=== PATIENT | male | born 1955 | race Two or more races ===

== ENCOUNTER 2020-07-18 17:22 | Inpatient (IN) | payer MEDICARE, OTHER ==
[~2020-07-18] VITALS: Ht 170.2 cm; Wt 83.5 kg
[2020-07-18] MEDS ORDERED: ACETAMINOPHEN 325 MG TAB PO ONE ×2 (17:32→17:45)
[2020-07-18] MEDS ORDERED: methylPREDNISolone SOD SUCC 125 MG/2 ML VL IV ONE (17:45)
[2020-07-18] MEDS ORDERED: ASCORBIC ACID 500 MG TAB PO ONE (17:45)
[2020-07-18] MEDS ORDERED: ZINC SULFATE 220mg CAP or TAB PO ONE (17:45)
[2020-07-18] MEDS ORDERED: AZITHROMYCIN 500MG/ 250ML 250 ML IV ONE (17:45)
[2020-07-18 19:33] LABS: Albumin 2.2 g/dL (3.4-5.0); Anion Gap 8 (5-15); Blood Urea Nitrogen 16 mg/dL (7-18); Calcium 8.1 mg/dL (8.5-10.1); Carbon Dioxide 22 mmol/L (21-32); Chloride 104 mmol/L (98-107); Glucose 123 mg/dL (74-106); Potassium 3.3 mmol/L (3.5-5.1); Sodium 134 mmol/L (136-145)
[2020-07-18 19:40] LABS: Alanine Aminotransferase 49 U/L (16-61); Alkaline Phosphatase 53 U/L (45-117); Aspartate Aminotransferase 41 U/L (15-37); BUN/Creatinine Ratio 15.7; Bilirubin, Total 0.8 mg/dL (0.2-1.0); GFR African American 94 mL/min; GFR Non-African American 78 mL/min; Total Protein 6.8 g/dL (6.4-8.2)
[2020-07-18 19:41] LABS: CRP High Sensitivity > 19 mg/dL (< 0.3)
[2020-07-18 19:42] LABS: Basophils # (auto) 0 10 ^3/uL (0-0.2); Basophils % (auto) 0.1 % (0.0-2.0); Eosinophils # (auto) 0 10 ^3/uL (0-0.8); Eosinophils % (auto) 0.1 % (0.0-7.0); Hematocrit 41.8 % (41.0-53.0); Lymphocytes # (auto) 0.9 10 ^3/uL (0.4-5.4); Lymphocytes % (auto) 12.4 % (10.0-50.0); Mean Corpuscular Hgb Conc. 33.6 g/dL (32.0-36.0); Mean Corpuscular Volume 86.5 fL (80.0-100.0); Monocytes # (auto) 0.3 10 ^3/uL (0-1.3); Monocytes % (auto) 3.7 % (0.0-12.0); Neutrophils % (auto) 83.7 % (37.0-80.0); Nucleated Red Blood Cells % 0.1 %; Platelet Count (auto) 221 10^3/uL (140-450); Red Blood Cells 4.83 10^6/uL (4.5-5.90); White Blood Cell 7.2 10^3/uL (4.4-10.8)
[2020-07-19] MEDS ORDERED: ONDANSETRON HCL 4 MG/2 ML VIAL IV PRN (00:30)
[2020-07-19] MEDS ORDERED: NITROGLYCERIN 0.4 MG SL TAB SL PRN (00:30)
[2020-07-19] MEDS ORDERED: POTASSIUM CHL 20 Meq TABLET PO ONE (00:30)
[2020-07-19] MEDS ORDERED: HYDROcodone-ACET 5/325MG TAB PO PRN (00:30)
[2020-07-19] MEDS ORDERED: ACETAMINOPHEN 325 MG TAB PO PRN (00:30)
[2020-07-19] MEDS ORDERED: MORPHINE SULF INJ 2 MG/ML SYRINGE 1ML IV PRN (00:30)
[2020-07-19] MEDS: SODIUM CHLOR 0.9% PF (SALINE LOCK) 10ML VIAL/SYR IV SCH ×3 (06:07→22:00)
[2020-07-19] MEDS: BUDESONIDE (INHALATION) 180 MCG IH IN SCH ×2 (07:45→22:21)
[2020-07-19] MEDS ORDERED: DOXYCYCLINE 100MG/250ML 250 ML IV SCH (10:00)
[2020-07-19] MEDS ORDERED: REMDESIVIR PER PHARMACY 0 ML IV SCH (12:30)
[2020-07-19] MEDS: DexAMETHasone SOD PHOS 10MG/1ML VIAL INJ IV SCH (12:42)
[2020-07-19] MEDS: ASCORBIC ACID 500 MG TAB PO SCH ×2 (12:43→22:32)
[2020-07-19] MEDS: FAMOTIDINE 20 MG TAB PO SCH ×2 (12:43→22:32)
[2020-07-19] MEDS: ZINC SULFATE 220mg CAP or TAB PO SCH (12:43)
[2020-07-19] MEDS: MULTIPLE VITAMIN TAB PO SCH (12:43)
[2020-07-19] MEDS: CHOLECALCIFEROL (VITD3) 2,000 UNIT CAP PO SCH (12:43)
[2020-07-19] MEDS: ENOXAPARIN SOD 40 MG/0.4 ML SYRINGE SC SCH (12:43)
[2020-07-19] MEDS ORDERED: REMDESIVIR 200 MG in NS 210ml LOADING DOSE ADULT IV ONE (15:00)
[2020-07-19] MEDS: cefTRIAXone 1GM/50ML D5W 50 ML IV SCH (15:59)
[2020-07-19 21:10] VITALS: BP 130/84
[2020-07-19 21:53] VITALS: BP 130/84
[2020-07-19] MEDS: ALBUTEROL SULF HFA 90MCG INH 200DOSE IN PRN (22:21)
[2020-07-19] MEDS ORDERED: BENA20TA14 PO (23:46)
[2020-07-20 05:00] VITALS: BP 126/81
[2020-07-20] MEDS: SODIUM CHLOR 0.9% PF (SALINE LOCK) 10ML VIAL/SYR IV SCH ×3 (05:48→21:33)
[2020-07-20 09:00] VITALS: BP_SYST 123; BP_SYST 71; BP_DIAS 71
[2020-07-20] MEDS: cefTRIAXone 1GM/50ML D5W 50 ML IV SCH (09:00)
[2020-07-20] MEDS: DexAMETHasone SOD PHOS 10MG/1ML VIAL INJ IV SCH (10:00)
[2020-07-20] MEDS: MULTIPLE VITAMIN TAB PO SCH (10:00)
[2020-07-20] MEDS: FAMOTIDINE 20 MG TAB PO SCH ×2 (10:00→21:33)
[2020-07-20] MEDS: CHOLECALCIFEROL (VITD3) 2,000 UNIT CAP PO SCH (10:00)
[2020-07-20] MEDS: ZINC SULFATE 220mg CAP or TAB PO SCH (10:00)
[2020-07-20] MEDS: ENOXAPARIN SOD 40 MG/0.4 ML SYRINGE SC SCH (10:00)
[2020-07-20] MEDS: BUDESONIDE (INHALATION) 180 MCG IH IN SCH ×2 (10:00→19:29)
[2020-07-20] MEDS: ASCORBIC ACID 500 MG TAB PO SCH ×2 (10:00→21:33)
[2020-07-20 10:20] LABS: Basophils # (auto) 0 10 ^3/uL (0-0.2); Basophils % (auto) 0.1 % (0.0-2.0); Eosinophils # (auto) 0 10 ^3/uL (0-0.8); Hematocrit 45.8 % (41.0-53.0); Hemoglobin 15.4 g/dL (13.5-17.5); Lymphocytes # (auto) 0.9 10 ^3/uL (0.4-5.4); Lymphocytes % (auto) 8.5 % (10.0-50.0); Mean Corpuscular Hemoglobin 29.3 pg (28.0-32.0); Mean Corpuscular Hgb Conc. 33.5 g/dL (32.0-36.0); Mean Corpuscular Volume 87.3 fL (80.0-100.0); Monocytes # (auto) 0.5 10 ^3/uL (0-1.3); Monocytes % (auto) 4.4 % (0.0-12.0); Neutrophils # (auto) 9.4 10 ^3/uL (1.6-8.6); Nucleated Red Blood Cells % 0.1 %; Platelet Count (auto) 427 10^3/uL (140-450); Red Blood Cells 5.25 10^6/uL (4.5-5.90); Red Cell Distribution Width 13.9 % (11.8-14.3); White Blood Cell 10.8 10^3/uL (4.4-10.8)
[2020-07-20 10:31] LABS: Potassium 3.5 mmol/L (3.5-5.1)
[2020-07-20 10:45] LABS: Albumin 2.2 g/dL (3.4-5.0); BUN/Creatinine Ratio 29.8; Bilirubin, Total 0.6 mg/dL (0.2-1.0); Calcium 9.3 mg/dL (8.5-10.1); Total Protein 7.6 g/dL (6.4-8.2)
[2020-07-20 13:00] VITALS: BP 135/89
[2020-07-20] MEDS: ALBUTEROL SULF HFA 90MCG INH 200DOSE IN PRN ×2 (15:14→19:29)
[2020-07-20 17:00] VITALS: BP 139/91
[2020-07-20] MEDS: REMDESIVIR 100 MG in SODIUM CHL 0.9% 250 ML IV SCH (19:11)
[2020-07-20 22:00] VITALS: BP 131/85
[2020-07-21] MEDS: guaiFENesin-CODEINE Liq 5 ML UD PO PRN (02:04)
[2020-07-21] MEDS: SODIUM CHLOR 0.9% PF (SALINE LOCK) 10ML VIAL/SYR IV SCH ×3 (06:00→22:00)
[2020-07-21] MEDS: ALBUTEROL SULF HFA 90MCG INH 200DOSE IN PRN ×2 (06:23→20:52)
[2020-07-21] MEDS: BUDESONIDE (INHALATION) 180 MCG IH IN SCH ×2 (06:23→20:52)
[2020-07-21 06:46] LABS: Potassium 4.5 mmol/L (3.5-5.1)
[2020-07-21 06:55] VITALS: BP 123/80
[2020-07-21 06:59] LABS: Albumin 2.1 g/dL (3.4-5.0); BUN/Creatinine Ratio 32.3; Bilirubin, Total 0.6 mg/dL (0.2-1.0); Calcium 8.8 mg/dL (8.5-10.1); Total Protein 6.8 g/dL (6.4-8.2)
[2020-07-21 08:00] VITALS: BP 135/98
[2020-07-21] MEDS: DexAMETHasone SOD PHOS 10MG/1ML VIAL INJ IV SCH (10:43)
[2020-07-21] MEDS: ENOXAPARIN SOD 40 MG/0.4 ML SYRINGE SC SCH ×2 (10:44→21:29)
[2020-07-21] MEDS: ASCORBIC ACID 500 MG TAB PO SCH ×2 (10:44→21:29)
[2020-07-21] MEDS: MULTIPLE VITAMIN TAB PO SCH (10:45)
[2020-07-21] MEDS: FAMOTIDINE 20 MG TAB PO SCH ×2 (10:45→21:29)
[2020-07-21] MEDS: CHOLECALCIFEROL (VITD3) 2,000 UNIT CAP PO SCH (10:45)
[2020-07-21] MEDS: ZINC SULFATE 220mg CAP or TAB PO SCH (10:46)
[2020-07-21 12:00] VITALS: BP 130/79
[2020-07-21 17:00] VITALS: BP 131/80
[2020-07-21] MEDS: REMDESIVIR 100 MG in SODIUM CHL 0.9% 250 ML IV SCH (17:19)
[2020-07-21 22:00] VITALS: BP 126/74
[2020-07-22] VITALS (7 sets, daily range): BP systolic 121–141; BP diastolic 73–98
[2020-07-22] MEDS: guaiFENesin-CODEINE Liq 5 ML UD PO PRN (05:01)
[2020-07-22] MEDS: SODIUM CHLOR 0.9% PF (SALINE LOCK) 10ML VIAL/SYR IV SCH ×3 (05:42→21:02)
[2020-07-22] MEDS: Ensure Enlive Strawberry 8oz Bottle PO SCH ×3 (08:00→17:43)
[2020-07-22] MEDS: MULTIPLE VITAMIN TAB PO SCH (09:32)
[2020-07-22] MEDS: ASCORBIC ACID 500 MG TAB PO SCH ×2 (09:32→21:02)
[2020-07-22] MEDS: DexAMETHasone SOD PHOS 10MG/1ML VIAL INJ IV SCH (09:33)
[2020-07-22] MEDS: ENOXAPARIN SOD 40 MG/0.4 ML SYRINGE SC SCH ×2 (09:33→10:30)
[2020-07-22] MEDS: CHOLECALCIFEROL (VITD3) 2,000 UNIT CAP PO SCH (09:34)
[2020-07-22] MEDS: FAMOTIDINE 20 MG TAB PO SCH ×2 (09:34→21:01)
[2020-07-22] MEDS: ZINC SULFATE 220mg CAP or TAB PO SCH (09:34)
[2020-07-22] MEDS: BUDESONIDE (INHALATION) 180 MCG IH IN SCH (10:00)
[2020-07-22 10:23] LABS: Basophils # (auto) 0 10 ^3/uL (0-0.2); Basophils % (auto) 0.1 % (0.0-2.0); Eosinophils # (auto) 0.1 10 ^3/uL (0-0.8); Eosinophils % (auto) 1.1 % (0.0-7.0); Hemoglobin 15.4 g/dL (13.5-17.5); Lymphocytes # (auto) 1.4 10 ^3/uL (0.4-5.4); Lymphocytes % (auto) 13.1 % (10.0-50.0); Mean Corpuscular Hemoglobin 29.4 pg (28.0-32.0); Mean Corpuscular Hgb Conc. 33.5 g/dL (32.0-36.0); Mean Corpuscular Volume 87.7 fL (80.0-100.0); Monocytes # (auto) 0.5 10 ^3/uL (0-1.3); Monocytes % (auto) 4.8 % (0.0-12.0); Neutrophils # (auto) 8.8 10 ^3/uL (1.6-8.6); Neutrophils % (auto) 80.9 % (37.0-80.0); Platelet Count (auto) 429 10^3/uL (140-450); Red Blood Cells 5.24 10^6/uL (4.5-5.90); Red Cell Distribution Width 14.3 % (11.8-14.3); White Blood Cell 10.9 10^3/uL (4.4-10.8)
[2020-07-22 10:29] LABS: Albumin 2.2 g/dL (3.4-5.0); BUN/Creatinine Ratio 25.8; Calcium 8.7 mg/dL (8.5-10.1); Potassium 3.7 mmol/L (3.5-5.1)
[2020-07-22 10:38] LABS: Bilirubin, Total 0.9 mg/dL (0.2-1.0); CRP High Sensitivity 14.1 mg/dL (< 0.3); Total Protein 7.4 g/dL (6.4-8.2)
[2020-07-22] MEDS: ALBUTEROL SULF HFA 90MCG INH 200DOSE IN PRN (11:39)
[2020-07-22] MEDS: REMDESIVIR 100 MG in SODIUM CHL 0.9% 250 ML IV SCH (15:21)
[2020-07-23] VITALS (7 sets, daily range): BP systolic 117–138; BP diastolic 79–85
[2020-07-23] MEDS: SODIUM CHLOR 0.9% PF (SALINE LOCK) 10ML VIAL/SYR IV SCH ×3 (05:24→21:41)
[2020-07-23 05:55] LABS: Hematocrit 43.9 % (41.0-53.0); Hemoglobin 14.7 g/dL (13.5-17.5); Mean Corpuscular Hemoglobin 29.5 pg (28.0-32.0); Mean Corpuscular Hgb Conc. 33.5 g/dL (32.0-36.0); Platelet Count (auto) 348 10^3/uL (140-450); Red Blood Cells 4.98 10^6/uL (4.5-5.90); White Blood Cell 8.7 10^3/uL (4.4-10.8)
[2020-07-23 06:09] LABS: Calcium 8.6 mg/dL (8.5-10.1); Potassium 4.4 mmol/L (3.5-5.1)
[2020-07-23 06:23] LABS: BUN/Creatinine Ratio 35.8; Bilirubin, Total 0.6 mg/dL (0.2-1.0); CRP High Sensitivity 14.7 mg/dL (< 0.3); Total Protein 6.7 g/dL (6.4-8.2)
[2020-07-23 06:29] LABS: Basophils % (manual) 0 (0.0-2.0); Blast Cells 0; Eosinophils % (manual) 0 (0-7); Promyelocytes % 0; Reactive Lymphocytes 0
[2020-07-23] MEDS: guaiFENesin-CODEINE Liq 5 ML UD PO PRN (06:59)
[2020-07-23 08:08] LABS: Band Neutrophils % (manual) 2; Lymphocytes % (manual) 17 (10.0-50.0); Metamyelocytes % 2; Monocytes % (manual) 2 (0-12); Myelocytes % 1
[2020-07-23] MEDS: ASCORBIC ACID 500 MG TAB PO SCH ×2 (09:12→21:41)
[2020-07-23] MEDS: DexAMETHasone SOD PHOS 10MG/1ML VIAL INJ IV SCH (09:12)
[2020-07-23] MEDS: Ensure Enlive Strawberry 8oz Bottle PO SCH ×3 (09:12→18:15)
[2020-07-23] MEDS: MULTIPLE VITAMIN TAB PO SCH (09:12)
[2020-07-23] MEDS: FAMOTIDINE 20 MG TAB PO SCH ×2 (09:13→21:41)
[2020-07-23] MEDS: ENOXAPARIN SOD 40 MG/0.4 ML SYRINGE SC SCH (09:13)
[2020-07-23] MEDS: ZINC SULFATE 220mg CAP or TAB PO SCH (09:13)
[2020-07-23] MEDS: CHOLECALCIFEROL (VITD3) 2,000 UNIT CAP PO SCH (09:13)
[2020-07-23] MEDS: REMDESIVIR 100 MG in SODIUM CHL 0.9% 250 ML IV SCH (15:35)
[2020-07-23] MEDS: BUDESONIDE (INHALATION) 180 MCG IH IN SCH (21:41)
[2020-07-24] VITALS: BP 126/77
[2020-07-24] MEDS: SODIUM CHLOR 0.9% PF (SALINE LOCK) 10ML VIAL/SYR IV SCH ×3 (05:15→21:04)
[2020-07-24 07:01] LABS: Basophils # (auto) 0 10 ^3/uL (0-0.2); Basophils % (auto) 0.1 % (0.0-2.0); Eosinophils # (auto) 0.1 10 ^3/uL (0-0.8); Eosinophils % (auto) 0.9 % (0.0-7.0); Hematocrit 42.9 % (41.0-53.0); Hemoglobin 14.3 g/dL (13.5-17.5); Lymphocytes # (auto) 1.1 10 ^3/uL (0.4-5.4); Lymphocytes % (auto) 11.2 % (10.0-50.0); Mean Corpuscular Hemoglobin 29.2 pg (28.0-32.0); Mean Corpuscular Hgb Conc. 33.3 g/dL (32.0-36.0); Mean Corpuscular Volume 87.5 fL (80.0-100.0); Monocytes # (auto) 0.8 10 ^3/uL (0-1.3); Neutrophils % (auto) 79.8 % (37.0-80.0); Platelet Count (auto) 310 10^3/uL (140-450); Red Cell Distribution Width 14.4 % (11.8-14.3)
[2020-07-24 07:42] LABS: Potassium 4.1 mmol/L (3.5-5.1)
[2020-07-24 08:05] LABS: Bilirubin, Total 0.7 mg/dL (0.2-1.0); CRP High Sensitivity 11.6 mg/dL (< 0.3); Calcium 8.7 mg/dL (8.5-10.1); Total Protein 6.5 g/dL (6.4-8.2)
[2020-07-24 09:00] VITALS: BP 131/87
[2020-07-24] MEDS: ZINC SULFATE 220mg CAP or TAB PO SCH (09:53)
[2020-07-24] MEDS: DexAMETHasone SOD PHOS 10MG/1ML VIAL INJ IV SCH (09:53)
[2020-07-24] MEDS: MULTIPLE VITAMIN TAB PO SCH (09:54)
[2020-07-24] MEDS: ASCORBIC ACID 500 MG TAB PO SCH ×2 (09:55→21:04)
[2020-07-24] MEDS: CHOLECALCIFEROL (VITD3) 2,000 UNIT CAP PO SCH (09:55)
[2020-07-24] MEDS: FAMOTIDINE 20 MG TAB PO SCH ×2 (09:55→21:04)
[2020-07-24] MEDS: ENOXAPARIN SOD 40 MG/0.4 ML SYRINGE SC SCH (09:56)
[2020-07-24] MEDS: Ensure Enlive Strawberry 8oz Bottle PO SCH ×3 (10:02→19:00)
[2020-07-24] MEDS: BUDESONIDE (INHALATION) 180 MCG IH IN SCH ×2 (10:03→21:04)
[2020-07-24 13:00] VITALS: BP 129/79
[2020-07-24 16:00] VITALS: BP 145/74
[2020-07-24] MEDS ORDERED: ALPRAZolam 0.25 MG TAB PO PRN (22:45)
[2020-07-25] VITALS: BP 130/83
[2020-07-25] MEDS: SODIUM CHLOR 0.9% PF (SALINE LOCK) 10ML VIAL/SYR IV SCH ×3 (05:11→21:22)
[2020-07-25] MEDS: guaiFENesin-CODEINE Liq 5 ML UD PO PRN ×2 (06:56→22:07)
[2020-07-25 06:57] LABS: Basophils # (auto) 0 10 ^3/uL (0-0.2); Basophils % (auto) 0.1 % (0.0-2.0); Eosinophils # (auto) 0 10 ^3/uL (0-0.8); Eosinophils % (auto) 0.4 % (0.0-7.0); Hematocrit 44.3 % (41.0-53.0); Hemoglobin 14.6 g/dL (13.5-17.5); Lymphocytes % (auto) 9.5 % (10.0-50.0); Mean Corpuscular Hemoglobin 29.2 pg (28.0-32.0); Mean Corpuscular Volume 88.5 fL (80.0-100.0); Monocytes # (auto) 0.9 10 ^3/uL (0-1.3); Monocytes % (auto) 8.9 % (0.0-12.0); Neutrophils # (auto) 8.4 10 ^3/uL (1.6-8.6); Neutrophils % (auto) 81.1 % (37.0-80.0); Nucleated Red Blood Cells % 0.2 %; Platelet Count (auto) 261 10^3/uL (140-450); Red Cell Distribution Width 13.8 % (11.8-14.3); White Blood Cell 10.3 10^3/uL (4.4-10.8)
[2020-07-25 07:08] LABS: Potassium 4.7 mmol/L (3.5-5.1)
[2020-07-25 07:42] LABS: BUN/Creatinine Ratio 30.4; Bilirubin, Total 0.7 mg/dL (0.2-1.0); CRP High Sensitivity 13.4 mg/dL (< 0.3); Calcium 8.9 mg/dL (8.5-10.1); Total Protein 6.8 g/dL (6.4-8.2)
[2020-07-25 08:00] VITALS: BP 137/69
[2020-07-25] MEDS: Ensure Enlive Strawberry 8oz Bottle PO SCH ×3 (08:55→18:16)
[2020-07-25] MEDS: ENOXAPARIN SOD 40 MG/0.4 ML SYRINGE SC SCH (09:06)
[2020-07-25] MEDS: CHOLECALCIFEROL (VITD3) 2,000 UNIT CAP PO SCH (09:06)
[2020-07-25] MEDS: FAMOTIDINE 20 MG TAB PO SCH ×2 (09:07→21:22)
[2020-07-25] MEDS: DexAMETHasone SOD PHOS 10MG/1ML VIAL INJ IV SCH (09:07)
[2020-07-25] MEDS: MULTIPLE VITAMIN TAB PO SCH (09:07)
[2020-07-25] MEDS: ZINC SULFATE 220mg CAP or TAB PO SCH (09:07)
[2020-07-25] MEDS: BUDESONIDE (INHALATION) 180 MCG IH IN SCH ×2 (09:07→22:22)
[2020-07-25] MEDS: ASCORBIC ACID 500 MG TAB PO SCH ×2 (09:07→21:22)
[2020-07-25 16:00] VITALS: BP 130/89
[2020-07-26] VITALS: BP 142/90
[2020-07-26] MEDS: SODIUM CHLOR 0.9% PF (SALINE LOCK) 10ML VIAL/SYR IV SCH ×3 (05:35→22:15)
[2020-07-26 06:34] LABS: Potassium 4.2 mmol/L (3.5-5.1)
[2020-07-26 06:54] LABS: Basophils # (auto) 0 10 ^3/uL (0-0.2); Basophils % (auto) 0.1 % (0.0-2.0); Eosinophils # (auto) 0 10 ^3/uL (0-0.8); Eosinophils % (auto) 0.5 % (0.0-7.0); Hematocrit 40.8 % (41.0-53.0); Hemoglobin 13.8 g/dL (13.5-17.5); Lymphocytes # (auto) 1.1 10 ^3/uL (0.4-5.4); Lymphocytes % (auto) 11.1 % (10.0-50.0); Mean Corpuscular Hemoglobin 29.6 pg (28.0-32.0); Mean Corpuscular Hgb Conc. 33.7 g/dL (32.0-36.0); Mean Corpuscular Volume 87.8 fL (80.0-100.0); Monocytes # (auto) 1.1 10 ^3/uL (0-1.3); Monocytes % (auto) 10.5 % (0.0-12.0); Neutrophils # (auto) 7.8 10 ^3/uL (1.6-8.6); Neutrophils % (auto) 77.8 % (37.0-80.0); Nucleated Red Blood Cells % 0.1 %; Platelet Count (auto) 241 10^3/uL (140-450); Red Blood Cells 4.65 10^6/uL (4.5-5.90); Red Cell Distribution Width 13.7 % (11.8-14.3); White Blood Cell 10.1 10^3/uL (4.4-10.8)
[2020-07-26 07:27] LABS: Albumin 1.9 g/dL (3.4-5.0); BUN/Creatinine Ratio 31.6; Bilirubin, Total 0.5 mg/dL (0.2-1.0); Calcium 8.3 mg/dL (8.5-10.1); Total Protein 6.6 g/dL (6.4-8.2)
[2020-07-26] MEDS: BUDESONIDE (INHALATION) 180 MCG IH IN SCH ×2 (07:55→23:29)
[2020-07-26 08:00] VITALS: BP 132/85
[2020-07-26] MEDS: DexAMETHasone SOD PHOS 10MG/1ML VIAL INJ IV SCH (12:10)
[2020-07-26] MEDS: ZINC SULFATE 220mg CAP or TAB PO SCH (12:10)
[2020-07-26] MEDS: Ensure Enlive Strawberry 8oz Bottle PO SCH ×3 (12:10→19:20)
[2020-07-26] MEDS: MULTIPLE VITAMIN TAB PO SCH (12:11)
[2020-07-26] MEDS: ASCORBIC ACID 500 MG TAB PO SCH ×2 (12:11→22:15)
[2020-07-26] MEDS: FAMOTIDINE 20 MG TAB PO SCH ×2 (12:11→22:15)
[2020-07-26] MEDS: ENOXAPARIN SOD 40 MG/0.4 ML SYRINGE SC SCH (12:11)
[2020-07-26] MEDS: CHOLECALCIFEROL (VITD3) 2,000 UNIT CAP PO SCH (12:11)
[2020-07-26] MEDS: guaiFENesin-CODEINE Liq 5 ML UD PO PRN (12:21)
[2020-07-26 21:41] VITALS: BP 133/94
[2020-07-27] MEDS: SODIUM CHLOR 0.9% PF (SALINE LOCK) 10ML VIAL/SYR IV SCH ×3 (06:11→23:02)
[2020-07-27 07:28] LABS: Basophils # (auto) 0 10 ^3/uL (0-0.2); Basophils % (auto) 0.3 % (0.0-2.0); Eosinophils # (auto) 0 10 ^3/uL (0-0.8); Eosinophils % (auto) 0.3 % (0.0-7.0); Hematocrit 40.9 % (41.0-53.0); Hemoglobin 14.2 g/dL (13.5-17.5); Lymphocytes # (auto) 1.2 10 ^3/uL (0.4-5.4); Lymphocytes % (auto) 12.8 % (10.0-50.0); Mean Corpuscular Hemoglobin 30.3 pg (28.0-32.0); Mean Corpuscular Hgb Conc. 34.7 g/dL (32.0-36.0); Mean Corpuscular Volume 87.4 fL (80.0-100.0); Monocytes # (auto) 0.9 10 ^3/uL (0-1.3); Monocytes % (auto) 9.4 % (0.0-12.0); Neutrophils # (auto) 7.5 10 ^3/uL (1.6-8.6); Neutrophils % (auto) 77.2 % (37.0-80.0); Nucleated Red Blood Cells % 0.1 %; Platelet Count (auto) 222 10^3/uL (140-450); Red Blood Cells 4.68 10^6/uL (4.5-5.90); Red Cell Distribution Width 13.5 % (11.8-14.3); White Blood Cell 9.7 10^3/uL (4.4-10.8)
[2020-07-27 07:46] LABS: Potassium 4.4 mmol/L (3.5-5.1)
[2020-07-27 07:57] LABS: Albumin 2.1 g/dL (3.4-5.0); BUN/Creatinine Ratio 32.5; Bilirubin, Total 0.6 mg/dL (0.2-1.0); Total Protein 6.9 g/dL (6.4-8.2)
[2020-07-27 08:00] VITALS: BP 122/93
[2020-07-27] MEDS: Ensure Enlive Strawberry 8oz Bottle PO SCH ×3 (08:00→18:00)
[2020-07-27 08:08] LABS: Calcium 8.6 mg/dL (8.5-10.1)
[2020-07-27] MEDS: ZINC SULFATE 220mg CAP or TAB PO SCH (10:04)
[2020-07-27] MEDS: DexAMETHasone SOD PHOS 10MG/1ML VIAL INJ IV SCH (10:04)
[2020-07-27] MEDS: ASCORBIC ACID 500 MG TAB PO SCH ×2 (10:04→21:33)
[2020-07-27] MEDS: FAMOTIDINE 20 MG TAB PO SCH ×2 (10:04→21:34)
[2020-07-27] MEDS: MULTIPLE VITAMIN TAB PO SCH (10:04)
[2020-07-27] MEDS: ENOXAPARIN SOD 40 MG/0.4 ML SYRINGE SC SCH (10:05)
[2020-07-27] MEDS: CHOLECALCIFEROL (VITD3) 2,000 UNIT CAP PO SCH (10:05)
[2020-07-27] MEDS ORDERED: ZOLPIDEM TARTRATE 5 MG TAB PO PRN (10:15)
[2020-07-27 16:00] VITALS: BP 126/91
[2020-07-27] MEDS: BUDESONIDE (INHALATION) 180 MCG IH IN SCH (20:10)
[2020-07-28] VITALS: BP 129/88
[2020-07-28] MEDS: guaiFENesin-CODEINE Liq 5 ML UD PO PRN ×2 (05:37→16:38)
[2020-07-28] MEDS: SODIUM CHLOR 0.9% PF (SALINE LOCK) 10ML VIAL/SYR IV SCH ×3 (05:38→22:25)
[2020-07-28 06:21] LABS: Basophils # (auto) 0 10 ^3/uL (0-0.2); Basophils % (auto) 0.1 % (0.0-2.0); Eosinophils # (auto) 0 10 ^3/uL (0-0.8); Eosinophils % (auto) 0.3 % (0.0-7.0); Hematocrit 44.1 % (41.0-53.0); Hemoglobin 15.1 g/dL (13.5-17.5); Lymphocytes # (auto) 1.5 10 ^3/uL (0.4-5.4); Lymphocytes % (auto) 13.8 % (10.0-50.0); Mean Corpuscular Hgb Conc. 34.3 g/dL (32.0-36.0); Mean Corpuscular Volume 87.4 fL (80.0-100.0); Monocytes # (auto) 1.1 10 ^3/uL (0-1.3); Monocytes % (auto) 9.6 % (0.0-12.0); Neutrophils # (auto) 8.4 10 ^3/uL (1.6-8.6); Neutrophils % (auto) 76.2 % (37.0-80.0); Nucleated Red Blood Cells % 0.1 %; Platelet Count (auto) 263 10^3/uL (140-450); Red Blood Cells 5.04 10^6/uL (4.5-5.90); Red Cell Distribution Width 13.7 % (11.8-14.3)
[2020-07-28 06:43] LABS: Potassium 4.3 mmol/L (3.5-5.1)
[2020-07-28 06:52] LABS: Albumin 2.2 g/dL (3.4-5.0); BUN/Creatinine Ratio 41.2; Bilirubin, Total 0.6 mg/dL (0.2-1.0); Calcium 8.8 mg/dL (8.5-10.1)
[2020-07-28] MEDS: ALBUTEROL SULF HFA 90MCG INH 200DOSE IN PRN ×2 (07:29→19:19)
[2020-07-28] MEDS: BUDESONIDE (INHALATION) 180 MCG IH IN SCH ×2 (07:29→19:19)
[2020-07-28 08:00] VITALS: BP 126/76
[2020-07-28] MEDS: Ensure Enlive Strawberry 8oz Bottle PO SCH ×3 (09:50→18:06)
[2020-07-28] MEDS: FAMOTIDINE 20 MG TAB PO SCH ×2 (10:04→22:26)
[2020-07-28] MEDS: DexAMETHasone SOD PHOS 10MG/1ML VIAL INJ IV SCH (10:04)
[2020-07-28] MEDS: ZINC SULFATE 220mg CAP or TAB PO SCH (10:04)
[2020-07-28] MEDS: MULTIPLE VITAMIN TAB PO SCH (10:04)
[2020-07-28] MEDS: ASCORBIC ACID 500 MG TAB PO SCH ×2 (10:04→22:26)
[2020-07-28] MEDS: ENOXAPARIN SOD 40 MG/0.4 ML SYRINGE SC SCH (10:05)
[2020-07-28] MEDS: CHOLECALCIFEROL (VITD3) 2,000 UNIT CAP PO SCH (10:05)
[2020-07-28 16:00] VITALS: BP 131/89
[2020-07-29] VITALS: BP 129/89
[2020-07-29] MEDS: SODIUM CHLOR 0.9% PF (SALINE LOCK) 10ML VIAL/SYR IV SCH ×3 (06:00→21:38)
[2020-07-29 06:27] LABS: Hematocrit 43.1 % (41.0-53.0); Hemoglobin 14.4 g/dL (13.5-17.5); Mean Corpuscular Hemoglobin 29.3 pg (28.0-32.0); Mean Corpuscular Hgb Conc. 33.4 g/dL (32.0-36.0); Mean Corpuscular Volume 87.7 fL (80.0-100.0); Platelet Count (auto) 248 10^3/uL (140-450); Red Blood Cells 4.91 10^6/uL (4.5-5.90); Red Cell Distribution Width 13.7 % (11.8-14.3); White Blood Cell 9.4 10^3/uL (4.4-10.8)
[2020-07-29 06:50] LABS: Band Neutrophils % (manual) 0; Basophils % (manual) 0 (0.0-2.0); Blast Cells 0; Eosinophils % (manual) 0 (0-7); Myelocytes % 0; Promyelocytes % 0; Reactive Lymphocytes 0
[2020-07-29 06:52] LABS: Albumin 2.1 g/dL (3.4-5.0); Calcium 8.6 mg/dL (8.5-10.1); Potassium 4.2 mmol/L (3.5-5.1)
[2020-07-29 06:57] LABS: BUN/Creatinine Ratio 39.5; Bilirubin, Total 0.6 mg/dL (0.2-1.0)
[2020-07-29 07:48] LABS: Lymphocytes % (manual) 10 (10.0-50.0); Metamyelocytes % 2; Monocytes % (manual) 3 (0-12)
[2020-07-29 09:00] VITALS: BP 144/82
[2020-07-29] MEDS: ALBUTEROL SULF HFA 90MCG INH 200DOSE IN PRN ×2 (09:27→20:18)
[2020-07-29] MEDS: BUDESONIDE (INHALATION) 180 MCG IH IN SCH ×2 (09:27→18:22)
[2020-07-29] MEDS: Ensure Enlive Strawberry 8oz Bottle PO SCH ×3 (10:08→18:00)
[2020-07-29] MEDS: DexAMETHasone SOD PHOS 10MG/1ML VIAL INJ IV SCH (10:09)
[2020-07-29] MEDS: ZINC SULFATE 220mg CAP or TAB PO SCH (10:09)
[2020-07-29] MEDS: FAMOTIDINE 20 MG TAB PO SCH ×2 (10:09→21:38)
[2020-07-29] MEDS: MULTIPLE VITAMIN TAB PO SCH (10:09)
[2020-07-29] MEDS: CHOLECALCIFEROL (VITD3) 2,000 UNIT CAP PO SCH (10:10)
[2020-07-29] MEDS: ASCORBIC ACID 500 MG TAB PO SCH ×2 (10:10→21:38)
[2020-07-29] MEDS: ENOXAPARIN SOD 40 MG/0.4 ML SYRINGE SC SCH (10:10)
[2020-07-29] MEDS: guaiFENesin-CODEINE Liq 5 ML UD PO PRN (11:35)
[2020-07-29 17:00] VITALS: BP 124/83
[2020-07-29 22:00] VITALS: BP 134/88
[2020-07-30] MEDS: SODIUM CHLOR 0.9% PF (SALINE LOCK) 10ML VIAL/SYR IV SCH ×3 (06:00→21:37)
[2020-07-30] MEDS: BUDESONIDE (INHALATION) 180 MCG IH IN SCH ×2 (06:27→22:11)
[2020-07-30 06:42] LABS: Hematocrit 43.4 % (41.0-53.0); Hemoglobin 14.5 g/dL (13.5-17.5); Mean Corpuscular Hemoglobin 29.4 pg (28.0-32.0); Mean Corpuscular Hgb Conc. 33.5 g/dL (32.0-36.0); Mean Corpuscular Volume 87.8 fL (80.0-100.0); Platelet Count (auto) 269 10^3/uL (140-450); Red Blood Cells 4.95 10^6/uL (4.5-5.90); Red Cell Distribution Width 13.7 % (11.8-14.3)
[2020-07-30 06:52] LABS: Band Neutrophils % (manual) 0; Basophils % (manual) 0 (0.0-2.0); Blast Cells 0; Myelocytes % 0; Promyelocytes % 0; Reactive Lymphocytes 0
[2020-07-30] MEDS: ALBUTEROL SULF HFA 90MCG INH 200DOSE IN PRN (07:35)
[2020-07-30 07:59] LABS: Eosinophils % (manual) 3 (0-7); Lymphocytes % (manual) 23 (10.0-50.0); Metamyelocytes % 1; Monocytes % (manual) 5 (0-12)
[2020-07-30 08:00] VITALS: BP 121/77
[2020-07-30 08:47] LABS: Potassium 4.2 mmol/L (3.5-5.1)
[2020-07-30 09:00] LABS: Albumin 2.2 g/dL (3.4-5.0); BUN/Creatinine Ratio 40.8; Bilirubin, Total 0.6 mg/dL (0.2-1.0); Calcium 8.7 mg/dL (8.5-10.1); Total Protein 7.1 g/dL (6.4-8.2)
[2020-07-30] MEDS: MULTIPLE VITAMIN TAB PO SCH (10:00)
[2020-07-30] MEDS: ZINC SULFATE 220mg CAP or TAB PO SCH (10:19)
[2020-07-30] MEDS: DexAMETHasone SOD PHOS 10MG/1ML VIAL INJ IV SCH (10:19)
[2020-07-30] MEDS: ENOXAPARIN SOD 40 MG/0.4 ML SYRINGE SC SCH (10:20)
[2020-07-30] MEDS: FAMOTIDINE 20 MG TAB PO SCH ×2 (10:20→21:37)
[2020-07-30] MEDS: CHOLECALCIFEROL (VITD3) 2,000 UNIT CAP PO SCH (10:20)
[2020-07-30] MEDS: ASCORBIC ACID 500 MG TAB PO SCH ×2 (10:20→21:37)
[2020-07-30] MEDS: Ensure Enlive Strawberry 8oz Bottle PO SCH ×3 (10:21→19:16)
[2020-07-30] MEDS: DOCUSATE SOD 100 MG CAP PO PRN (10:47)
[2020-07-30] MEDS: guaiFENesin-CODEINE Liq 5 ML UD PO PRN ×2 (10:48→21:37)
[2020-07-30 16:00] VITALS: BP 121/78
[2020-07-31] VITALS: BP 132/92
[2020-07-31] MEDS: BUDESONIDE (INHALATION) 180 MCG IH IN SCH ×2 (06:00→21:00)
[2020-07-31 06:18] LABS: Hematocrit 42.3 % (41.0-53.0); Hemoglobin 14.3 g/dL (13.5-17.5); Mean Corpuscular Hemoglobin 29.4 pg (28.0-32.0); Mean Corpuscular Hgb Conc. 33.7 g/dL (32.0-36.0); Mean Corpuscular Volume 87.2 fL (80.0-100.0); Platelet Count (auto) 255 10^3/uL (140-450); Red Blood Cells 4.85 10^6/uL (4.5-5.90); Red Cell Distribution Width 13.6 % (11.8-14.3); White Blood Cell 9.6 10^3/uL (4.4-10.8)
[2020-07-31] MEDS: ALBUTEROL SULF HFA 90MCG INH 200DOSE IN PRN ×2 (07:01→21:00)
[2020-07-31] MEDS: SODIUM CHLOR 0.9% PF (SALINE LOCK) 10ML VIAL/SYR IV SCH ×3 (07:03→21:54)
[2020-07-31 07:12] LABS: Basophils % (manual) 0 (0.0-2.0); Blast Cells 0; Eosinophils % (manual) 0 (0-7); Metamyelocytes % 0; Myelocytes % 0; Promyelocytes % 0; Reactive Lymphocytes 0
[2020-07-31 08:00] VITALS: BP 141/90
[2020-07-31 08:29] LABS: Albumin 2.2 g/dL (3.4-5.0); BUN/Creatinine Ratio 39.7; Bilirubin, Total 0.6 mg/dL (0.2-1.0); Calcium 8.6 mg/dL (8.5-10.1); Potassium 4.2 mmol/L (3.5-5.1); Total Protein 6.8 g/dL (6.4-8.2)
[2020-07-31] MEDS: DexAMETHasone SOD PHOS 10MG/1ML VIAL INJ IV SCH (09:38)
[2020-07-31] MEDS: ENOXAPARIN SOD 40 MG/0.4 ML SYRINGE SC SCH (09:38)
[2020-07-31] MEDS: ASCORBIC ACID 500 MG TAB PO SCH ×2 (09:38→21:54)
[2020-07-31] MEDS: FAMOTIDINE 20 MG TAB PO SCH ×2 (09:38→21:53)
[2020-07-31] MEDS: CHOLECALCIFEROL (VITD3) 2,000 UNIT CAP PO SCH (09:38)
[2020-07-31] MEDS: Ensure Enlive Strawberry 8oz Bottle PO SCH ×3 (09:39→17:25)
[2020-07-31] MEDS: MULTIPLE VITAMIN TAB PO SCH (09:39)
[2020-07-31] MEDS: DOCUSATE SOD 100 MG CAP PO PRN (09:39)
[2020-07-31] MEDS: ZINC SULFATE 220mg CAP or TAB PO SCH (09:39)
[2020-07-31 10:53] LABS: Band Neutrophils % (manual) 2; Lymphocytes % (manual) 12 (10.0-50.0); Monocytes % (manual) 3 (0-12)
[2020-07-31 16:00] VITALS: BP 123/77
[2020-07-31] MEDS: guaiFENesin-CODEINE Liq 5 ML UD PO PRN (17:25)
[2020-08-01] VITALS: BP 130/78
[2020-08-01] MEDS: SODIUM CHLOR 0.9% PF (SALINE LOCK) 10ML VIAL/SYR IV SCH ×2 (05:35→14:28)
[2020-08-01 06:29] LABS: Hematocrit 41.6 % (41.0-53.0); Hemoglobin 14.3 g/dL (13.5-17.5); Mean Corpuscular Hemoglobin 29.9 pg (28.0-32.0); Mean Corpuscular Hgb Conc. 34.5 g/dL (32.0-36.0); Mean Corpuscular Volume 86.7 fL (80.0-100.0); Platelet Count (auto) 240 10^3/uL (140-450); Red Cell Distribution Width 14.1 % (11.8-14.3); White Blood Cell 10.3 10^3/uL (4.4-10.8)
[2020-08-01 06:44] LABS: Basophils % (manual) 0 (0.0-2.0); Blast Cells 0; Eosinophils % (manual) 0 (0-7); Myelocytes % 0; Promyelocytes % 0; Reactive Lymphocytes 0
[2020-08-01 06:48] LABS: Albumin 2.3 g/dL (3.4-5.0); Potassium 4.5 mmol/L (3.5-5.1)
[2020-08-01 06:53] LABS: Bilirubin, Total 0.5 mg/dL (0.2-1.0); Calcium 8.5 mg/dL (8.5-10.1); Total Protein 6.5 g/dL (6.4-8.2)
[2020-08-01 07:50] LABS: Band Neutrophils % (manual) 3; Lymphocytes % (manual) 13 (10.0-50.0)
[2020-08-01 07:51] LABS: Metamyelocytes % 1; Monocytes % (manual) 15 (0-12)
[2020-08-01 08:00] VITALS: BP 132/82
[2020-08-01] MEDS: Ensure Enlive Strawberry 8oz Bottle PO SCH ×3 (08:00→18:02)
[2020-08-01] MEDS: DexAMETHasone SOD PHOS 10MG/1ML VIAL INJ IV SCH (09:13)
[2020-08-01] MEDS: MULTIPLE VITAMIN TAB PO SCH (09:14)
[2020-08-01] MEDS: ASCORBIC ACID 500 MG TAB PO SCH (09:14)
[2020-08-01] MEDS: CHOLECALCIFEROL (VITD3) 2,000 UNIT CAP PO SCH (09:14)
[2020-08-01] MEDS: FAMOTIDINE 20 MG TAB PO SCH (09:14)
[2020-08-01] MEDS: ZINC SULFATE 220mg CAP or TAB PO SCH (09:14)
[2020-08-01] MEDS: ENOXAPARIN SOD 40 MG/0.4 ML SYRINGE SC SCH (09:14)
[2020-08-01] MEDS: BUDESONIDE (INHALATION) 180 MCG IH IN SCH (10:00)
[2020-08-01 10:30] VITALS: BP 132/82
[2020-08-01 16:07] VITALS: BP 133/93
[2020-08-01] MEDS: ALBUTEROL SULF HFA 90MCG INH 200DOSE IN PRN (16:38)
== END 2020-08-01 19:00 | disposition home or self-care (01) | DRG 177 ==
LOC: EDBD 17:22 → ER 17:22 → TELE 17:23 → TELE-WESTW 07-19 21:30
PROVIDERS: ADMIT Nurse Practitioner Family; ATTEND Internal Medicine
PROC: XW033E5 Introduction of Remdesivir Anti-infective into Peripheral Vein, Percutaneous Approach, New Technology Group 5 (ICD-10-PCS; principal; 2020-07-19)
DX: U07.1 COVID-19 (principal); J96.01 Acute respiratory failure with hypoxia; J12.89 Other viral pneumonia; J98.11 Atelectasis; E87.8 Other disorders of electrolyte and fluid balance, not elsewhere classified; I10 Essential (primary) hypertension; E78.5 Hyperlipidemia, unspecified; E66.3 Overweight; E87.6 Hypokalemia; D72.829 Elevated white blood cell count, unspecified; Z79.899 Other long term (current) drug therapy; Z79.01 Long term (current) use of anticoagulants; Z68.27 Body mass index [BMI] 27.0-27.9, adult
CPT/HCPCS: 36415; 36600; 71045; 71275; 80053; 82728; 82805; 83036; 83605; 83615; 83735; 84484; 85007; 85025; 85027; 85379; 86141; 87040; 87426; 93005; 93970; 94640; 96365; 96366; 96375; G0378; J0696; J1100; J3490